=== PATIENT | female | born 1985 ===

== ENCOUNTER 2017-01-17 21:57 | Inpatient (IN) | payer OTHER ==
[2017-01-17 22:36] VITALS: BMI 24.7
[2017-01-17] MEDS ORDERED: Ampicillin 2 GM in Sodium Chloride 0.9% 100 ML IV ONE (22:48)
[2017-01-17 23:34] LABS: BASO # 0.1 K/uL (0.0-0.2); BASO % 0.3 % (0.0-2.0); EOS # 0.1 K/uL (0.0-0.7); EOS % 0.3 % (0.0-4.0); HEMATOCRIT 31.9 % (34.0-47.0); LYMPH # 2.8 K/uL (1.0-4.3); MEAN CELL VOLUME 82.4 fl (81.0-99.0); MEAN CORPUSCULAR HEMOGLOBIN 28.9 pg (27.0-31.0); MEAN CORPUSCULAR HGB CONC 35.1 g/dL (33.0-37.0); MEAN PLATELET VOLUME 10.3 fl (7.2-11.7); MONO # 0.7 K/uL (0.0-0.8); MONO % 4.4 % (0.0-10.0); NEUT # 12.9 K/uL (1.8-7.0); RED CELL DISTRIBUTION WIDTH 14.9 % (11.5-14.5); WHITE BLOOD COUNT 16.6 K/uL (4.8-10.8)
[2017-01-17] MEDS ORDERED: ceFAZolin 1 GM in Sodium Chloride 0.9% 100 ML IVPB ONE (23:35)
[2017-01-17] MEDS: Lactated Ringer's 1,000 ML IV SCH (23:45)
--- NOTE | 2017-01-18 00:02 | US ---
EXAM: US After First Trimester, Transabdominal CLINICAL HISTORY: 31 years old, female; Pain; complicated by abdominal or pelvic pain; Generalized abdominal pain; Third trimester; Gestational age or lmp: ? 06/06/16; ; Additional info: Gestational age approximation: No care TECHNIQUE: Real-time transabdominal obstetrical ultrasound of the maternal pelvis and a second or third trimester with image documentation. COMPARISON: No relevant prior studies available. FINDINGS: Fetus: Single live intrauterine gestation. Heart rate: heart rate of 139 beats per minute. Presentation: Breech. Placenta: Fundal placenta. No placenta previa or abruption. Amniotic fluid: KENNETH = 6.6 cm. Anatomy: No gross anomaly is appreciated. BIOMETRICS Gestational age by US: Estimated gestational age of 36 weeks 2 days by measurements. EFW: Estimated weight of 2734 g. BPD: 9.1 cm, correlating with 36 weeks 6 days. HC: 32.6 cm, correlating with 37 weeks 0 days. AC: 30.9 cm, correlating with 34 weeks 6 days. FL: 7.1 cm, correlating with 36 weeks 1 day. MATERNAL: Uterus: Unremarkable. No myometrial mass. Cervix: No cervical dilatation or effacement. Free fluid: No free fluid. IMPRESSION: 1. Single live intrauterine gestation. 2. Oligohydramnios. 3. Incidental/non-acute findings are described above.
[2017-01-18] MEDS ORDERED: Phenylephrine 10 mg/ml Inj ONE (00:22)
[2017-01-18] MEDS ORDERED: ePHEDrine 50 mg/ml Inj ONE (00:22)
[2017-01-18] MEDS ORDERED: Morphine 1 mg/ml preservative-free Inj(Duramorph) ONE (00:22)
[2017-01-18] MEDS ORDERED: Sodium Chloride 0.9% 10 ML IV ONE (00:23)
--- NOTE | 2017-01-18 00:43 | OBHP ---
Datetime: 01/18/2017 00:28 Admit Comment, IP Provider: 31 yo g1 edc unknown LMP in 06/07, possilbly wk of May, presnts w/ c/o srom @ 21:00. She denies vag bleeding, ctxs or decreased fm. She has had no care an d denies any ultrsound with current preg. PMHx _ PShx: denies nkda medic: none shx: denies etoh, drugs or tobacco I: Breech @ 36wks by US today No care P: Admit for . Informed consent for - indications d/w pt ob labs urine tox Pelvic Type - PN: Adequate Extremities - PN: Normal Abdomen - PN: Normal Lungs - PN: Normal Heart - PN: Normal Neurologic - PN: Normal HEENT - PN: Normal General - PN: Normal Presentation-Admit: Breech Membranes, Provider: Ruptured Contraction Comments Provider: none Comments, ACOG Physical Exam: US today: 36.2wks; Breech; oligo Pool Provider: Positive Nitrazine Provider: Positive IP Chief Complaint: Suspected ruptured membranes NICHD Variability Prov Fetus A: Moderate 6-25bpm NICHD Accel Fetus A IP Provider: [id number] Dilatation, Provider: 0 Effacement, Provider: 80 Station, Provider: -3 Genitourinary Exam: Normal
--- NOTE | 2017-01-18 00:53 | OBADHP ---
Datetime: 01/18/2017 00:43 Admit Comment, IP Provider: 31 yo g1 edc unknown LMP in 06/07, possilbly 2nd wk of May, presnts w/ c/o srom @ 21:00. She denies vag bleeding, ctxs or decreased fm. She has had no care an d denies any ultrsound with current preg. PMHx _ PShx: denies nkda medic: none shx: denies etoh, drugs or tobacco I: Breech @ 36wks by US today No care P: Admit for . Informed consent for - indications d/w pt ob labs Datetime: 01/18/2017 00:28 Pelvic Type - PN: Adequate Extremities - PN: Normal Abdomen - PN: Normal Lungs - PN: Normal Heart - PN: Normal Neurologic - PN: Normal HEENT - PN: Normal General - PN: Normal Presentation-Admit: Breech Membranes, Provider: Ruptured Contraction Comments Provider: none Comments, ACOG Physical Exam: US today: 36.2wks; Breech; oligo Pool Provider: Positive Nitrazine Provider: Positive IP Chief Complaint: Suspected ruptured membranes NICHD Variability Prov Fetus A: Moderate 6-25bpm NICHD Accel Fetus A IP Provider: [id number] Dilatation, Provider: 0 Effacement, Provider: 80 Station, Provider: -3 Genitourinary Exam: Normal
[2017-01-18] MEDS ORDERED: DiphenhydrAMINE 50 mg/ml Inj IVP PRN (01:30)
[2017-01-18] MEDS ORDERED: Oxytocin 30 units/LR 500ML 30 U/500 ML BAG IV SCH (02:52)
[2017-01-18 04:24] VITALS: BP 128/88; PULSE 75; RESP 17; TEMP 98.3
[2017-01-18] MEDS ORDERED: AMPicillin 1 GM in Sodium Chloride 0.9% 100 ML IV SCH (05:00)
--- NOTE | 2017-01-18 09:49 | OP ---
PROCEDURE DATE: 01/18/2017 PREOPERATIVE DIAGNOSES: 1. No care. 2. Spontaneous rupture of membranes. 3. A 36-week gestation by ultrasound done today. POSTOPERATIVE DIAGNOSES: 1. No care. 2. Breech presentation. 3. Estimated gestational age of 37 weeks per shell maker lockstitch. DESCRIPTION OF PROCEDURE: Primary low transverse section. SURGEON: Melissa Pena MD. DIAPER MACHINE TENDER: Dr. Rk Caputo SECOND SHAREPOINT APPLICATION DEVELOPER: Resident, Dr. Manisha Obregon, PGY1. ANESTHESIA: Spinal. ANESTHESIOLOGIST: Dr. Patricio. COMPLICATIONS: None. ESTIMATED BLOOD LOSS: 700 mL FINDINGS: Showed a viable male infant in kerri breech presentation, clear amniotic fluid noted. Apg ars of 9 and 9 and a weight of 6 pounds 7 ounces. The patient to recovery room in satisfactory condi tion. to nursery. PATHOLOGY: No specimens. INDICATIONS: The patient is a 31-year-old female who stated her LMP was sometime in May. She presented with complaints of spontaneous rupture of membranes. The patient states she has had no pre trell care whatsoever. Evaluation showed a breech presentation and sterile speculum exam showed pool ing of amniotic fluid with positive Nitrazine test. The patient was consented for section. Risks, indications and benefits were discussed with patient and she agreed with planned procedure. PROCEDURE: The patient was taken to the operating room where she underwent her spinal anesthesia. S he was then placed in dorsal supine position and prepped and draped in the routine sterile fashion. She was placed in dorsal supine position with a lateral tilt. A Pfannenstiel skin incision was made with the knife. This was carried down to the underlying rectus fascia which was incised in the midli ne and extended bilaterally with a Bovie. The inferior rectus fascial edge was grasped with Kochers and the underlying rectus muscle dissected off. The same procedure was performed along the superior rectus fascial edge. The peritoneum was identified, tented upward and incised superiorly and inferio rly. The bladder flap was created using sharp and blunt dissection. A lower uterine transverse inci singh was made with the knife and the uterine cavity was entered with the hemostat. The uterine incis ion was then extended bilaterally with the use of the bandage scissors and in a curvilinear fashion. The was noted to be kerri breech presentation. The index finger was placed into bilateral g roins and the thumb along the sacrum and the 's buttock was delivered. This was followed by d elivery of the left and right arms, respectively and the head with procedure consistent for breech pr esentation. The cord was clamped and cut. The 's mouth and nares were bulb suctioned. Cord blood was collected. The placenta was delivered spontaneously intact. The uterus was exteriorized a nd cleared of all clots and debris. The uterine incision was reapproximated with 0 Vicryl in a runni ng locked fashion. A second stitch of 4-0 Monocryl was used at the sites that were bleeding. Excell ent hemostasis confirmed. The abdomen was irrigated and cleared of all clots and debris. The uterus was returned to the abdomen. The incision was reinspected. Excellent hemostasis confirmed. The pe lvis was irrigated, cleared of clots and debris. The peritoneum was reapproximated with 2-0 Vicryl i n a running fashion. The fascia was reapproximated with 0 Vicryl in a running fashion beginning in t he left lateral corner going across. The wound was irrigated. Good hemostasis confirmed. The subcu taneous tissue was reapproximated with 2-0 plain in simple interrupted fashion. The skin was reappro ximated with 4-0 Monocryl in a subcuticular fashion. All sponge, lap, needle count correct x 2. Of note, Dr. Caputo was my family law legal assistant. He assisted in surgical entry, delivery of fetus, surgical closur e and hemostasis and surgical exposure. Melissa Pena MD cc: [id number] TT: 01/18/2017 09:48:01 tn
[2017-01-18] MEDS: Lactated Ringer's 1,000 ML IV SCH ×3 (13:00→21:45)
[2017-01-18 19:18] LABS: HEMATOCRIT 25.8 % (34.0-47.0); MEAN CELL VOLUME 83.9 fl (81.0-99.0); MEAN CORPUSCULAR HEMOGLOBIN 29.2 pg (27.0-31.0); MEAN CORPUSCULAR HGB CONC 34.8 g/dL (33.0-37.0); RED CELL DISTRIBUTION WIDTH 15.5 % (11.5-14.5); WHITE BLOOD COUNT 21.6 K/uL (4.8-10.8)
[2017-01-19] MEDS: Oxycodone/Acetaminophen 5/325 mg Tab PO PRN ×3 (00:29→18:14)
[2017-01-19] MEDS: Lactated Ringer's 1,000 ML IV SCH (05:45)
--- NOTE | 2017-01-19 07:57 | OBPPN ---
Datetime: 01/18/2017 20:00 PP Pain Prov: Abnormal PP Progress Note Prov: Late entry Jan 19 for Jan 18 20:00pm. Notified that resident on-call as notifed about pain and unable to urinate. She had the allen rem precious at 15:00pm. Pain medicatoins given. Resident ordered for pain medication only. A: Urinary retention PLAN: Allen cathjeter placed - 1400cc clear urine removed...will leave allen and remove tmrw. Datetime: 01/18/2017 06:36 PP Nausea Prov: Denies PP Flatus Prov: No PP BM Prov: No PP Heart Prov: Normal PP Lungs Prov: Normal PP Abdomen/Uterus Prov: Normal PP Lochia Prov: Normal PP CVA Tenderness Prov: Normal PP Extremities Prov: Normal PP C/S Incision Prov: Normal PP Progress Prov: Normal PP Comments Phys Exam Prov: wound dressing in place, clean/dry/intact Vital Signs Provider PP: Reviewed; Within Normal Limits
--- NOTE | 2017-01-19 09:01 | OBPPN ---
Datetime: 01/19/2017 08:21 PP Pain Prov: Within normal limits PP Nausea Prov: Denies PP Flatus Prov: Yes PP BM Prov: No PP Breasts Prov: Normal PP Abdomen/Uterus Prov: Normal PP Lochia Prov: Normal PP Extremities Prov: Normal PP C/S Incision Prov: Normal PP Progress Prov: Normal PP Comments Phys Exam Prov: incision clean, intact, small amount serousanguinous drainage on steri s trips. PP Plan Prov: Continue present management PP Progress Note Prov: POD#1 Patient feels better today. Last night had urinary retention after d/c of allen catheter. Allen is still in place. She is tolerating regular diet, and breast feeding without difficulty. She notes dizziness upon st anding yesterday. She has not attempted to stand today. Denies any chest pain, palpitations or dizzin ess. Exam: lying comfortably normal breathing pattern abdomen non distended, mildy tender near incision. A: POD#1 s/p primary for breech presentation P: d/c allen, follow urine output pain management encouraged patient to ambulate as tolerated encouraged Adriana PGY1 [facility] ADDENDUM: Pt seen _ examined by me. Agree with above assessment and plan. benefits of breastmilk d.w pt IP PP Procedures: None Vital Signs Provider PP: Reviewed
[2017-01-19 19:43] LABS: RBC URINE 3765 /hpf (0-3); RENAL EPITHELIAL 1 /hpf (0-3); TRANSITIONAL EPITHIAL 1 /hpf (0-3); URINE BACTERIA RARE (<OCC); URINE BILIRUBIN NEGATIVE (NEGATIVE); URINE BLOOD MODERATE (NEGATIVE); URINE COLOR RED (YELLOW); URINE GLUCOSE (UA) 50 mg/dL (Normal); URINE KETONE NEGATIVE (NEGATIVE); URINE LEUKOCYTE ESTERASE TRACE Leu/uL (Negative); URINE PROTEIN 100 mg/dL (NEGATIVE); URINE UROBILINOGEN 0.2-1.0 mg/dL (0.2-1.0); WBC CLUMPS FEW /hpf; WBC URINE 337 /hpf (0-5)
[2017-01-20] MEDS: Oxycodone/Acetaminophen 5/325 mg Tab PO PRN ×3 (05:56→22:20)
--- NOTE | 2017-01-20 09:29 | OBPPN ---
Datetime: 01/20/2017 07:09 PP Pain Prov: Within normal limits PP Nausea Prov: Denies PP Flatus Prov: Yes PP BM Prov: No PP Breasts Prov: Normal PP Heart Prov: Normal PP Lungs Prov: Normal PP Abdomen/Uterus Prov: Normal PP Lochia Prov: Normal PP Vulva/Perineum Prov: Normal PP CVA Tenderness Prov: Normal PP Extremities Prov: Normal PP C/S Incision Prov: Normal PP Progress Prov: Abnormal PP Comments Phys Exam Prov: Fundus : firm below the umbilicus Incison: c/d/i - Pain during PP Impression Prov: Normal progression PP Plan Prov: Continue present management PP Progress Note Prov: 31 YO seen and examined at bedside. Patient had uneventful overnight an d has been feeling well during the day. Patient states that her pelvic pain is controled with medicat ion and is much better then yesterday. - Yesterday she had severe burning during micturation, she states there is still some burning but less then yesterday. Denies any increase in frequency or chills/ fevers overnight. - OOB/Ambulating w/o dizziness. Breast/bottle feeding, she has slight pain over nipple region whe n breast feeding but no bleeding or cracks in nipple region - Patient has been tolerating PO intake. Patient denies any nausea or vomiting. Patient passed ga s but has not yet had a bowl movment. Pain controlled with medication. Denies fevers, chills, n/v/d , CP/SOB, lightheartedness and calf pain. Assessment:31 YO s/p C section on 01/18/17 @ 1:06 tolerating pain w/ medication, tolerating oral intake, adequate urine output, doing well on POD#2 U/A: Nitrate +ve, RBC:3765, Leucocyte esterase trace: Discussed w/ Dr. Pena Plan: - Mild pain (1-3) PRN: Ibuprofen 600 mg 1 tab Q6h PO - Mod pain (4-7) PRN: Percocet 5/325 mg 1 tab Q6 PO - Encourage breast feeding and ambulation - Start Macrobid 100 mg BID x 7 days Chloe Vu PGY1 Addendum by attending Dr. Camargo: Patient by independantly by myself and I agree with the above. Martinez okeefe is a PPD #1, having some dysuria from urine infection, will treat with Augmentin which is safe for . Continue all other orders IP PP Procedures: None Vital Signs Provider PP: Reviewed; Within Normal Limits
[2017-01-20] MEDS: Amoxicillin-Clav 500-125 mg Tab PO SCH ×2 (11:14→22:18)
[2017-01-20] MEDS ORDERED: Lansinoh for Breast Feeding Mothers TP PRN (14:59)
[2017-01-21] MEDS: Amoxicillin-Clav 500-125 mg Tab PO SCH (09:28)
[2017-01-21] MEDS ORDERED: TDAP Vaccine 0.5 mL Syr IM ONE (11:33)
--- NOTE | 2017-01-21 11:38 | OBPPN ---
Datetime: 01/21/2017 05:08 PP Pain Prov: Within normal limits PP Nausea Prov: Denies PP Flatus Prov: Yes PP BM Prov: Yes PP Breasts Prov: Normal PP Heart Prov: Normal PP Lungs Prov: Normal PP Abdomen/Uterus Prov: Normal PP Lochia Prov: Normal PP Vulva/Perineum Prov: Normal PP CVA Tenderness Prov: Normal PP Extremities Prov: Normal PP C/S Incision Prov: Normal PP Progress Prov: Normal PP Comments Phys Exam Prov: Fundus : firm below the umbilicus Incison: c/d/i PP Impression Prov: Normal progression PP Plan Prov: Continue present management; Discharge PP Progress Note Prov: 31 y/o seen and examined at bedside. Patient had uneventful overnight. Patient reports mild pelvic pain controlled w/ pain meds. OOB/Ambulating w/o dizziness. Breast/bot tle feeding w/o difficulty. Tolerating PO diet well. Lochia is less than menses in volume. Voiding freely w/ no blood noted. Reports 1 bowel movement yesterday 3 pm. Patient reports dysuria and is taking Augmentin 1 tab Q12h. Denies fever, chills, n/v/d, CP/SOB, lightheadedness, calf pain. Assessment: 31 y/o s/p on 01/18/17 @ 01:06 tolerating pain w/ medication, toleratin g oral intake, adequate urine output, doing well on POD3. UTI Plan: - Percocet 5/325 mg 1-2 tabs PO Q6h prn for mod/severe pain. - Ibuprofen 600 mg 1 tab Q6h PO prn for mild pain. -Ferrous sulfate 325 mg 1 tab BID -Senokot-S 2 tab QHS PRN -Augmentin 500/125 mg 1 tab Q12h x 7 days Encourage breast feeding and ambulation. -Discharge today. Pito Flores PGY1 OB[facility] ADDENDUM: Pt seen _ examined by me. Agree with above plan with following additions and modifications: Pt denies h/a, scotomata, ruq pain, or visual disturbances. I: Elev BP- may be 2ndary to motrin Anemia due to blood loss UTI P: d/c home. d/c rx for motrin. pt advised to take Tylenol for pain import of FE supplem d/w pt pt advised to eat yogurt qd while completing augmentin Vital Signs Provider PP: Reviewed; Within Normal Limits
--- NOTE | 2017-01-21 11:40 | OBDCSUM ---
Datetime: 01/21/2017 05:14 Discharged to, Provider: Home Follow up at, Provider: [facility] Disch Instr Activity: Normal activity; May Shower Disch Instr Diet: Regular Discharge Instructions, Provider: Routine instructions given Discharge Diagnosis, Provider: Term Delivered Discharge Time: 01/21/2017 05:14 Follow up in weeks, Provider: 7 days for bp check Disch Referrals: None Disch Activity Restrictions: No exercising; No lifting; No driving; No sexual activity; Nothing in v agina - [place], tampons, douche Discharge Comment, Provider: 31 y/o s/p C section (SROM and breech presentation) on 01/18/17 @ 01:06 @ 37 weeks GA Delivered baby boy on 01/18/17 @ 01:06 ,weight 2930 g , : 8-9 Patient doing well, stable for discharge. Prescription given for pain -Encourage -Ibuprofen 600 mg PO 1 tab PO Q6h for pain PRN -Mod pain PRN: Percocet 5/325 mg 1 tab Q6 PO -Senokot-S 1 tab QHS for constipation PRN -Augmentin 500/125 mg 1 tab Q12h x 7 days -Discharge today Ambulate w/ caution, nothing in vagina, no heavy lifting, avoid stairs, if excessive bleeding or f ever without relief from Tylenol go to ED - Advised for F/U [facility] clinic 7 days and 2-3 days for with loss control consultant. Pito Flores PGY1 Pt seen _ examined by me. Agree with above plan with following additions and modifications: Pt denies h/a, scotomata, ruq pain, or visual disturbances. I: Elev BP- may be 2ndary to motrin Anemia due to blood loss UTI P: d/c home. d/c rx for motrin. pt advised to take Tylenol for pain import of FE supplem d/w pt pt advised to eat yogurt qd while completing augmentin. f/u for bp check in office in 1wk. Discharge Diagnosis Prov Other: C section.breech presentation; no Contraception after Delivery: Undecided
--- NOTE | 2017-01-21 14:57 | OBDS ---
MATERNAL INFORMATION Delivery Anesthesia: Spinal Estimated Blood Loss (ml): 700 Placenta Cultured: No Maternal Complications: None Provider Comments: Preop Dx: No care; SROM; Breech Postop Dx: same; kerri breech Proced: prim cd surg: orossetos asst 1sst - m.gypsy asst 2nd- vhernandez spinal anesth dr ahn findings: viable male kerri breech c/w/ ga of 37wks per neon; 2930g; 9_9 no complic pt to rr neon to nbn ebl 700cc no complica LABOR SUMMARY EDC: 02/08/2017 00:00 No. Babies in Womb: 1 Attempted: No Labor Anesthesia: None LABOR INFORMATION Reason for Induction: Not Applicable Onset of Labor: 01/17/2017 21:30 Group B Beta Strep: Not Done Antibiotics # of Doses: 1 Antibiotics Time of Last Dose: 0005 Steroids Given: None Reason Steroids Not Administered: Not Applicable MEMBRANES Membranes Rupture Method: Spontaneous Rupture of Membranes: 01/17/2017 21:30 Length of Rupture (hrs): 3.60 Amniotic Fluid Color: Clear Amniotic Fluid Amount: Moderate Amniotic Fluid Odor: Normal STAGES OF LABOR Stage 3 hrs: 0 Stage 3 min: 1 Total Time in Labor hrs: 3 Total Time in Labor min: 37 VAGINAL DELIVERY Episiotomy: None Laceration Extension: N/A Laceration Type: None CSECTION DELIVERY Primary Indication: Breech Presentation CSection Incidence: Primary Labor: N/A CSection Incision: Lower Uterine Transverse BABY A INFORMATION Delivery Date/Time: 01/18/2017 01:06 Method of Delivery: Born in Route : No : N/A Forceps: N/A Vacuum Extraction: N/A Shoulder Dystocia : No SHOULDER DYSTOCIA BABY A Delivery Date/Time: 01/18/2017 01:06 PRESENTATION/POSITION BABY A Presentation: Breech PLACENTA INFORMATION BABY A Placenta Delivery Time : 01/18/2017 01:07 Placenta Method of Delivery: Spontaneous Placenta Status: Delivered SCORES BABY A Heart Rate 1 min: >100 bpm Resp Effort 1 min: Good Cry Reflex Irritability 1 min: Cough or Sneeze or Pulls Away Muscle Tone 1 min: Active Motion Color 1 min: Blue/Pale Resuscitation Effort 1 min: Tactile Stimulation SCORE 1 MIN: 8 Heart Rate 5 min: >100 bpm Resp Effort 5 min: Good Cry Reflex Irritability 5 min: Cough or Sneeze or Pulls Away Muscle Tone 5 min: Active Motion Color 5 min: Body [place], Extremities Blue Resuscitation Effort 5 min: N/A SCORE 5 MIN: 9 INFANT INFORMATION BABY A Gestational Age at Delivery: 37.0 Gestational Status: Term Infant Outcome : Liveborn Condition : Stable Infant Sex: Male IDENTIFICATION/MEDS BABY A ID Band Number: [id number] ID Band Location: Left Leg; Left Arm WEIGHT/LENGTH BABY A Infant Birthweight (gms): 2930 Weight (lb): 6 Weight (oz): 7 CORD INFORMATION BABY A No. Cord Vessels: 3 Nuchal Cord : N/A Cord Blood Taken: Yes Suction: Mouth
--- NOTE | 2017-01-21 15:39 | OBHP ---
Datetime: 01/18/2017 00:43 Admit Comment, IP Provider: 31 yo g1 edc unknown LMP in 06/07, possilbly 2nd wk of May, presnts w/ c/o srom @ 21:00. She denies vag bleeding, ctxs or decreased fm. She has had no care an d denies any ultrsound with current preg. PMHx _ PShx: denies nkda medic: none shx: denies etoh, drugs or tobacco I: Breech @ 36wks by US today No care P: Admit for . Informed consent for - indications d/w pt ob labs Datetime: 01/18/2017 00:28 EGA AdmitDate IP: 37.0
--- NOTE | 2017-01-21 15:41 | OP ---
PROCEDURE DATE: 01/18/2017 PREOPERATIVE DIAGNOSES: 1. No care. 2. Spontaneous rupture of membranes. 3. Breech presentation. 4. Estimated gestational age by ultrasound on day of section, 36 weeks. POSTOPERATIVE DIAGNOSES: 1. No care. 2. Spontaneous rupture of membranes. 3. Breech presentation. 4. Estimated gestational age by ultrasound on day of section, 36 weeks. 5. Kerri breech presentation. PROCEDURE: Primary section. SURGEON: Melissa Pena MD ANTIQUE REPAIRER: Dr. Rk Caputo SECOND BUTTER MAKER: PGY-2, Dr. Manisha Obregon. ANESTHESIOLOGIST: Dr. Patricio. ANESTHESIA: Spinal. FINDINGS: Showed a viable male infant in kerri breech presentation consistent with a gestational age of 37 weeks per the cook apprentice. Apgars were 8 and 9 and the weight of the baby was 2930 grams. COMPLICATIONS: There were no complications. The patient to recovery room in satisfactory condition. to nursery. ESTIMATED BLOOD LOSS: 700 mL. INDICATIONS: The patient is a 31-year-old female 1, who presented to OB ED with complaints of spontaneous rupture of membranes. She stated her last menstrual period was possibly in the second week of May. She denied any history of care or ultrasounds during . Sterile speculum exam showed clear fluid within the posterior vault, Nitrazine positive. A bedside ultrasound showed a breech presentation. An ultrasound was obtained to obtain estimated gestational age, which revealed the patient to be approximately 36 weeks. The patient was consented for primary section due to kerri breech presentation. Risks, benefits and indications discussed with patient. She agreed with planned procedure. PROCEDURE: The patient was taken back to the operating room where she underwent spinal anesthesia without complications. She was then placed in a dorsal supine position with a leftward tilt. A Briones catheter was placed and patient was prepped and draped in the routine sterile fashion. A Pfannenstiel skin incision was made with the scalpel. The incision was carried down to the underlying rectus fascia with the Bovie. The fascia was incised in the midline and extended bilaterally. The inferior rectus fascial edge was grasped with Kochers, the underlying rectus muscle dissected off and the same procedure was performed along the superior rectus fascial edge. The muscle was in the midline. The peritoneum was tented upward and incised superiorly and inferiorly. The bladder blade was placed and a bladder flap created using sharp and blunt dissection. A lower uterine transverse incision was made with the scalpel and this was extended bilaterally with the bandage scissors. The was noted to be in breech presentation. The index fingers were placed on either side within the inguinal region and the thumbs along the sacrum. The was delivered in the routine fashion for breech. Following delivery of the buttock, the left lower extremity and right lower extremity was delivered followed by delivery of the upper extremities and the 's head. Mouth and nares suctioned. Cord was clamped and cut and the baby was handed off to the awaiting applied behavior science specialist and the awaiting cook apprentice. The cord blood was collected. The placenta was delivered spontaneously and intact. The uterus was cleared of all clots and debris. The uterine incision was reapproximated with 0 Vicryl in a running lock fashion followed by an imbricated stitch with Monocryl. The abdomen was irrigated and cleared of all clots and debris. The uterus was returned back to the abdomen. The uterine incision was reinspected. Excellent hemostasis confirmed. The pelvis irrigated and cleared of all clots and debris. The peritoneum was reapproximated with 2-0 plain in running fashion. The muscles reapproximated with 2-0 Vicryl in simple interrupted fashion. The fascia was reapproximated with 0 Vicryl in a running fashion beginning in the left lateral corner and going across to the other side. The subcutaneous tissue was reapproximated with 2-0 plain in simple interrupted fashion. The skin was reapproximated with anthony. All sponge, lap, and needle counts were correct x 2 and patient returned to recovery room in satisfactory condition. Dr. Caputo was the first assistant in nursing. He assisted in surgical entry, exposure, hemostasis, delilvery of and surgical closure. Melissa Pena MD cc: [id number] TT: 01/21/2017 15:40:38 sn [id number]
== END 2017-01-21 15:00 | disposition home or self-care (01) | DRG 370 ==
LOC: H.EROB2 21:57 → H.L&D 23:26 → H.OB/GYN 01-18 07:09
PROVIDERS: ADMIT Obstetrics & Gynecology; ATTEND Obstetrics & Gynecology
PROC: 4A1HXCZ Monitoring of Products of Conception, Cardiac Rate, External Approach (ICD-10-PCS; 2017-01-17)
PROC: 10D00Z1 Extraction of Products of Conception, Low, Open Approach (ICD-10-PCS; principal; 2017-01-18)
PROC: 3E0234Z Introduction of Serum, Toxoid and Vaccine into Muscle, Percutaneous Approach (ICD-10-PCS; 2017-01-21)
DX: O32.1XX0 Maternal care for breech presentation, not applicable or unspecified (principal); O86.29 Other urinary tract infection following delivery; D62 Acute posthemorrhagic anemia; O90.81 Anemia of the puerperium; O09.33 Supervision of pregnancy with insufficient antenatal care, third trimester; Z3A.37 37 weeks gestation of pregnancy; Z37.0 Single live birth; Z23 Encounter for immunization